=== PATIENT | male | born 1965 | race Caucasian/White ===

== ENCOUNTER 2016-05-27 17:16 | Emergency (ER) | payer OTHER ==
[~2016-05-27] VITALS: Ht 177.8 cm; Wt 93.2 kg
[~2016-05-27 17:16] MED LIST: INDO50CA PO; LORA0.5T PO
[2016-05-27 17:19] VITALS: BP 195/100; PULSE 95; RESP 20; O2SAT 98
--- NOTE | 2016-05-27 17:57 | ED.REPORT ---
HPI-Extremity Problem Upper Date of Service May 27, 2016 ED Provider: Ricky Farmer DO A 50 year old male with no pertinent medical history presents to the ED complaining of a piece of wood in his left forearm. 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 A splinter of wood became lodged in his arm. Some of this splinter was removed through the use of an unused utility knife, but part of the splinter was too deep to remove. The pt's tetanus is up to date. Nursing Notes Stated Complaint: WOOD STUCK IN L ARM Chief Complaint: Extremity Trauma Nursing Notes Reviewed: Yes Allergies: Coded Allergies: hydromorphone (Verified Allergy, Unknown, 09/29/15) Scheduled Cephalexin (Keflex) 500 Mg Capsule 500 MG PO QID Indomethacin (Indomethacin) 50 Mg Capsule 50 MG PO QID Scheduled PRN Lorazepam (Lorazepam) 0.5 Mg Tablet 0.5 MG PO BID PRN PRN For Anxiety General Time Seen by MD: 17:56 Chief Complaint Forearm injury left Hx Obtained From: Patient Arrived By: Walk-in Onset Occurred: 1 - 4 hours ago Symptom Duration: Since onset Recent Healthcare: No recent doctor visit, No recent hospitalization Similar Sx Previous: No Past Medical History Past Medical History Reports rectal bleeding with heavy alcohol use Anxiety Past Surgical History denies Family History noncontributory Smoking History Current Every Day Smoker Social History Alcohol Use: Denies alcohol use Drug Use: Denies drug use Other Social History: Good social support, Local resident Ambulatory Status Independent Review of Systems Constitutional: Denies: Fever Musculoskeletal: Reports: Extremity pain, Denies: Back pain, Neck pain Skin: Denies Rash Complete sys rev & neg: except as marked. Respiratory: Denies: Non-productive cough, Shortness of breath Cardiovascular: Denies: Chest pain GI: Denies: Abdominal pain Physical Exam Initial Vital Signs Vital Signs (First) Date Time Temp Pulse Resp B/P Pulse Ox O2 Delivery O2 Flow Rate FiO2 05/27/16 17:19 37.2 95 20 195/100 98 Initial VS: Reviewed General/Constitutional: Awake, Alert Neck: Atraumatic, Supple, Full range of motion Respiratory / Chest: Atraumatic, Breath sounds NL, Breath sounds = bilat, No respiratory distress Cardiovascular: Heart rate NL, Regular rhythm, Heart sounds NL Upper Extremity / MS: Full range of motion 3 cm palpable immobile mass adjacent to the puncture wound in his lateral forearm tender with surrounding swelling neurovascularly intact Skin: Color NL, No rash, Warm, Dry Neurologic: Oriented X3, Speech NL, No motor deficits, No sensory deficits Head / Eyes: Atraumatic, Normocephalic, PERRL, EOMI ENT: Atraumatic, Airway patent, Mucous membranes moist Abdomen: Atraumatic, Soft, Non-tender Back: Atraumatic, Full range of motion Lower Extremity / Pelvis / MS: Atraumatic, Full range of motion Psychiatric: Affect NL, Mood NL Interpretation & Diagnostics Interpretation & Diagnostics: Left Forearm X-Ray: IMPRESSION: 1. Findings consistent with foreign bodies in the subcutaneous fat of the posterior forearm. No acute fracture. Dictated by: Benton Chance M.D. on 05/27/2016 at 18:48 Approved by: Benton Chance M.D. on 05/27/2016 at 18:50 Procedures Procedure Notes: FB removal - left forearm 18:52, ED physician Consent from patient, time-out performed, hand hygiene observed, stand sterile technique lateral aspect of left forearm Chlorohexidine 1% lidocaine with epi #11 blade, forceps removal of foreign body complete, 3 cm x 3 mm x 2mm splinter of wood tolerated procedure well, pt stable, no complications, condition improved Laceration Management Time: 19:09 Procedure Performed by: ED physician Consent / Setup / Site Prep: Informed consent provided, Consent from patient , Time-out performed, Hand hygiene observed, Stand sterile technique Wound Length: 1 cm (0.5 cm) Local Anesthesia: Lidocaine w epi 1% Digital Block: No Wound Preparation: Hibiclens - Chlorhexidine Debridement: None Foreign Body Explore / Removal: Explored for foreign body, Complete removal Repair Skin: ___ O (4), Nylon # Sutures - Skin: 2 Suture Technique: Simple Post-Procedure / Complications: Antibiotic oint applied, Dressing applied, No complications, Condition improved, Tolerated procedure well, Patient stable Re-Eval/Medical Decision Source of Hx: Old records Re-Evaluation/Progress : Time of Eval: 18:52 Patient Status: Condition improved Re-Evaluation/Progress Note: Pt rechecked, who is comfortable. Foreign body removal is performed. The pt tolerated the procedure well and there were no complications. Subsequent laceration management is performed. The plan for discharge was discussed. The pt understands and agrees with the plan. All questions are addressed at this time. Counseled Regarding: Diagnosis, Lab results, Need for follow-up, When/why to return to ED Discharge & Departure Impression: Primary Impression: Foreign body (FB) in soft tissue Additional Impression: Embedded wood splinter Disposition: Home Discharge Condition All VS Reviewed: Yes Condition: Stable Additional Instructions: Thank you for entrusting us with your care today. Take the Keflex as prescribed. Keep the wound clean and dry. Have the sutures removed in ten days either in the emergency department or with your primary care physician. Return to the emergency department if you develop any signs of infection including redness, swelling, drainage, or fever. It appears that we have removed all the wood that was in your arm. If you continue to have problems he will need to be reevaluated as it is certainly possible that there is a splinter that we could not feel or see. Referrals: [facility] Scribe Attestation Portions of this note were transcribed by Felipe Aparicio I, Dr. Farmer personally performed the history, physical exam and medical decision-making; I reviewed and confirmed the accuracy of the information in the transcribed note. Signed by: Janine Ramirez, 05/27/16 and 19:22. copies to: [facility] Ricky Farmer DO May 27, 2016 17:57 FELIPE APARICIO May 27, 2016 18:17
[2016-05-27] MEDS ORDERED: Lidocaine 1%-Epi 1:100,000 20 mL Inj ONE (18:30)
--- NOTE | 2016-05-27 18:52 | DRSVH ---
PROCEDURE: X-RAY LEFT FOREARM, TWO VIEWS ([id number]) INDICATIONS: foreign body, large wood plinter TECHNIQUE: 2 views of the forearm were acquired. COMPARISON: None. FINDINGS: Bones: No fractures or dislocations. No suspicious bony lesions. Soft tissues: No suspicious soft tissue calcifications. Within the posterior aspect of the midforear m, underlying the markers, there is linear radiodensity, consistent with splinter fragment(s). IMPRESSION: 1. Findings consistent with foreign bodies in the subcutaneous fat of the posterior forearm. No acute fracture. Dictated by: Benton Chance M.D. on 05/27/2016 at 18:48 Approved by: Benton Chance M.D. on 05/27/2016 at 18:50
[2016-05-27] MEDS ORDERED: CEPH-512 PO (19:21)
== END 2016-05-27 19:32 | disposition home or self-care (01) ==
LOC: SED 17:16
DX: S50.852A Superficial foreign body of left forearm, initial encounter (principal); W22.8XXA Striking against or struck by other objects, initial encounter; Y92.9 Unspecified place or not applicable; Y93.89 Activity, other specified; Y99.0 Civilian activity done for income or pay; F17.200 Nicotine dependence, unspecified, uncomplicated; Z88.5 Allergy status to narcotic agent